=== PATIENT | male | born 1990 | race African-American/Black ===

== ENCOUNTER 2016-12-09 22:03 | Emergency (ER) | payer SELFPAY ==
[~2016-12-09] VITALS: Ht 180.3 cm; Wt 80.0 kg
[2016-12-10] MEDS ORDERED: BACITRACIN ZINC OINT UDPKT TOP ONE (00:15)
[2016-12-10] MEDS ORDERED: TETANUS, DIPHTHERIA, PERTUSSIS VAC/PF 0.5ML (>7YR OLD) IM ONE (00:15)
[2016-12-10] MEDS ORDERED: LIDOCAINE HCL 1% 20ML VIAL (Pyxis) INJ MC ONE (00:15)
[2016-12-10] MEDS ORDERED: SODIUM CHLORIDE 0.9% 1,000 ML IV ONE (00:24)
[2016-12-10] MEDS ORDERED: CLINDAMYCIN 600 MG in DEXTROSE 5% WATER 50 ML IV ONE (00:30)
[2016-12-10] MEDS ORDERED: HYDROCODONE/APAP 7.5/325MG 1 TAB TABLET PO ONE (01:00)
[2016-12-10 01:45] VITALS: BP 124/79
[2016-12-10] MEDS ORDERED: CLINDAMYCIN 600 MG in DEXTROSE 5% WATER 50 ML IV NR (02:00)
== END 2016-12-10 03:10 | disposition home or self-care (01) ==
LOC: ER 22:03
DX: S61.411A Laceration without foreign body of right hand, initial encounter (principal); F17.210 Nicotine dependence, cigarettes, uncomplicated; F12.10 Cannabis abuse, uncomplicated; W50.0XXA Accidental hit or strike by another person, initial encounter; Y93.89 Activity, other specified; Y92.89 Other specified places as the place of occurrence of the external cause; Y99.8 Other external cause status
CPT/HCPCS: 73130; 90471; 90715; 96360; 99284; J3490; Z7610; J7030; J7060

== ENCOUNTER 2018-11-06 17:50 | Emergency (ER) | payer MEDICAID ==
[~2018-11-06] VITALS: Ht 180.3 cm; Wt 68.0 kg
[2018-11-06 22:20] VITALS: BP 118/79
== END 2018-11-06 22:35 | disposition home or self-care (01) ==
LOC: ER 17:50
DX: S62.612A Displaced fracture of proximal phalanx of right middle finger, initial encounter for closed fracture (principal); Y04.0XXA Assault by unarmed brawl or fight, initial encounter; Y93.89 Activity, other specified; Y92.89 Other specified places as the place of occurrence of the external cause; R03.0 Elevated blood-pressure reading, without diagnosis of hypertension
CPT/HCPCS: 26742; 73140; 99284

== ENCOUNTER 2023-11-25 23:36 | Emergency (ER) | payer MEDICAID, OTHER ==
[~2023-11-25] VITALS: Ht 182.9 cm; Wt 73.6 kg
[2023-11-25 23:56] VITALS: TEMP 98.7; O2SAT 100
[2023-11-26] MEDS ORDERED: IBUP-2029 MT (01:22)
[2023-11-26 01:30] VITALS: BP 105/61; PULSE 83; RESP 16
[2023-11-26] MEDS: HYDROCODONE/ACETAMINOPHEN 5/325MG TABLET PO ONE (01:30)
== END 2023-11-26 02:50 | disposition home or self-care (01) ==
LOC: ER 23:36
DX: R68.89 Other general symptoms and signs (principal); F12.10 Cannabis abuse, uncomplicated
CPT/HCPCS: 29125; 73130; 99283